=== PATIENT | male | born 1970 | race Caucasian/White ===

== ENCOUNTER 2021-04-03 20:58 | Emergency (ER) | payer MEDICARE ==
--- NOTE | 2021-04-03 21:57 | XR ---
EXAMINATION TYPE: XR chest 2V DATE OF EXAM: 04/03/2021 COMPARISON: NONE HISTORY: Cough TECHNIQUE: 2 views FINDINGS: Heart and mediastinum are normal. Lungs are clear. Diaphragm is normal. Bony thorax appears intact. IMPRESSION: Normal chest.
--- NOTE | 2021-04-03 22:08 | ED ---
SOB HPI - General Chief Complaint: Shortness of Breath Stated Complaint: SOB,cough Time Seen by Provider: 04/03/21 21:28 Source: patient, RN notes reviewed, old records reviewed Mode of arrival: ambulatory Limitations: no limitations - History of Present Illness Initial Comments: This is a 50-year-old male to the emergency room today for evaluation of s hortness of breath cough or congestion. No fevers. Patient does have history of smoking and smoking marijuana. Patient presented to the for evaluation of persistent weakness shortness of breath and cough. Patient is also having shortness of breath and chest pain with exertion MD Complaint: shortness of breath, cough -: days(s) Radiation: back, jaw Severity: moderate Quality: dull, stabbing Consistency: intermittent Improves With: nothing Worsens With: nothing Known History Of: COPD, asthma Context: recent URI, recent illness Associated Symptoms: cough - Related Data Home Medications Medication Instructions Recorded Confirmed Albuterol Sulfate [Albuterol 2 puff PO RT-Q6H PRN 04/03/21 04/03/21 Sulfate Hfa] Mometasone/Formoterol [Dulera 50 1 puff PO RT-DAILY PRN 04/03/21 04/03/21 Mcg-5 Mcg Inhaler] Terazosin [Hytrin] 1 mg PO DAILY 04/03/21 04/03/21 buPROPion [Wellbutrin] 75 mg PO DAILY 04/03/21 04/03/21 Previous Rx's Medication Instructions Recorded Albuterol Nebulized [Ventolin 2.5 mg INHALATION Q4H PRN #25 nebu 04/04/21 Nebulized] Albuterol Sulfate [Proair Hfa] 1 - 2 puff INHALATION Q4H PRN #1 04/04/21 inhaler predniSONE 50 mg PO DAILY #5 tab 04/04/21 Allergies Allergy/AdvReac Type Severity Reaction Status Date / Time No Known Allergies Allergy Verified 04/03/21 23:25 Review of Systems ROS Statement: Those systems with pertinent positive or pertinent negative responses have been documented in the HPI. ROS Other: All systems not noted in ROS Statement are negative. Past Medical History Past Medical History: No Reported History History of Any Multi-Drug Resistant Organisms: None Reported Past Surgical History: Orthopedic Surgery, Tonsillectomy Past Psychological History: No Psychological Hx Reported Smoking Status: Current every day smoker Past Alcohol Use History: None Reported Past Drug Use History: Marijuana General Exam Limitations: no limitations General appearance: alert, in no apparent distress, anxious Head exam: Present: atraumatic, normocephalic, normal inspection Eye exam: Present: normal appearance, PERRL, EOMI. Absent: scleral icterus, conjunctival injection, periorbital swelling ENT exam: Present: normal exam, mucous membranes moist Neck exam: Present: normal inspection. Absent: tenderness, meningismus, lymphadenopathy Respiratory exam: Present: respiratory distress, wheezes, rhonchi. Absent: normal lung sounds bilaterally, rales, stridor Cardiovascular Exam: Present: regular rate, normal rhythm, normal heart sounds. Absent: systolic murmur, diastolic murmur, rubs, gallop, clicks GI/Abdominal exam: Present: soft, normal bowel sounds. Absent: distended, tenderness, guarding, rebound, rigid Extremities exam: Present: normal inspection, full ROM, normal capillary refill. Absent: tenderness, pedal edema, joint swelling, calf tenderness Back exam: Present: normal inspection Neurological exam: Present: alert, oriented X3, CN II-XII intact Psychiatric exam: Present: normal affect, normal mood Skin exam: Present: warm, dry, intact, normal color. Absent: rash Course Vital Signs 04/03/21 04/03/21 04/04/21 21:23 23:58 00:03 Temperature 98.6 F 98.4 F Pulse Rate 90 86 72 Respiratory 18 20 Rate Blood Pressure 128/77 112/67 O2 Sat by Pulse 99 Oximetry 04/04/21 04/04/21 00:13 00:53 Temperature 98.4 F Pulse Rate 88 83 Respiratory 18 Rate Blood Pressure 116/60 O2 Sat by Pulse 93 L Oximetry - Reevaluation(s) Reevaluation #1: 04/04/21 Record is reviewed Patient symptoms are improved here in the emergency department Patient informed of results and questions answered Patient is in no acute distress Medical Decision Making - Medical Decision Making 50 male DF for evaluation of breath persistent some time now with exertional shortness of breath for the last 3 days. Does have a CTA which is negative here in the ER states he feels resolved with breathing treatments and can be discharged home - Lab Data Result diagrams: 04/03/21 22:13 04/03/21 22:13 Lab Results 04/03/21 04/03/21 04/03/21 Range/Units 22:13 22:13 22:13 WBC 9.3 (3.8-10.6) k/uL RBC 4.85 (4.30-5.90) m/uL Hgb 15.4 (13.0-17.5) gm/dL Hct 46.4 (39.0-53.0) % MCV 95.7 (80.0-100.0) fL MCH 31.8 (25.0-35.0) pg MCHC 33.3 (31.0-37.0) g/dL RDW 13.0 (11.5-15.5) % Plt Count 214 (150-450) k/uL MPV 8.3 Neutrophils % 49 % Lymphocytes % 36 % Monocytes % 5 % Eosinophils % 7 % Basophils % 1 % Neutrophils # 4.6 (1.3-7.7) k/uL Lymphocytes # 3.3 (1.0-4.8) k/uL Monocytes # 0.5 (0-1.0) k/uL Eosinophils # 0.6 (0-0.7) k/uL Basophils # 0.1 (0-0.2) k/uL PT 9.5 (9.0-12.0) sec INR 0.9 (<1.2) APTT 22.4 (22.0-30.0) sec D-Dimer 0.40 (<0.60) mg/L FEU Sodium 137 (137-145) mmol/L Potassium 4.2 (3.5-5.1) mmol/L Chloride 105 (98-107) mmol/L Carbon Dioxide 25 (22-30) mmol/L Anion Gap 7 mmol/L BUN 21 H (9-20) mg/dL Creatinine 0.77 (0.66-1.25) mg/dL Est GFR (CKD-EPI)AfAm >90 (>60 ml/min/1.73 sqM) Est GFR (CKD-EPI)NonAf >90 (>60 ml/min/1.73 sqM) Glucose 103 H (74-99) mg/dL Plasma Lactic Acid Carlos (0.7-2.0) mmol/L Calcium 9.0 (8.4-10.2) mg/dL Total Bilirubin 0.3 (0.2-1.3) mg/dL AST 34 (17-59) U/L ALT 50 H (4-49) U/L Alkaline Phosphatase 87 (38-126) U/L Creatine Kinase 125 (55-170) U/L Troponin I (0.000-0.034) ng/mL NT-Pro-B Natriuret Pep pg/mL Total Protein 6.9 (6.3-8.2) g/dL Albumin 4.4 (3.5-5.0) g/dL 04/03/21 04/03/21 04/03/21 Range/Units 22:13 22:13 22:13 WBC (3.8-10.6) k/uL RBC (4.30-5.90) m/uL Hgb (13.0-17.5) gm/dL Hct (39.0-53.0) % MCV (80.0-100.0) fL MCH (25.0-35.0) pg MCHC (31.0-37.0) g/dL RDW (11.5-15.5) % Plt Count (150-450) k/uL MPV Neutrophils % % Lymphocytes % % Monocytes % % Eosinophils % % Basophils % % Neutrophils # (1.3-7.7) k/uL Lymphocytes # (1.0-4.8) k/uL Monocytes # (0-1.0) k/uL Eosinophils # (0-0.7) k/uL Basophils # (0-0.2) k/uL PT (9.0-12.0) sec INR (<1.2) APTT (22.0-30.0) sec D-Dimer (<0.60) mg/L FEU Sodium (137-145) mmol/L Potassium (3.5-5.1) mmol/L Chloride (98-107) mmol/L Carbon Dioxide (22-30) mmol/L Anion Gap mmol/L BUN (9-20) mg/dL Creatinine (0.66-1.25) mg/dL Est GFR (CKD-EPI)AfAm (>60 ml/min/1.73 sqM) Est GFR (CKD-EPI)NonAf (>60 ml/min/1.73 sqM) Glucose (74-99) mg/dL Plasma Lactic Acid Carlos 0.8 (0.7-2.0) mmol/L Calcium (8.4-10.2) mg/dL Total Bilirubin (0.2-1.3) mg/dL AST (17-59) U/L ALT (4-49) U/L Alkaline Phosphatase (38-126) U/L Creatine Kinase (55-170) U/L Troponin I <0.012 (0.000-0.034) ng/mL NT-Pro-B Natriuret Pep 83 pg/mL Total Protein (6.3-8.2) g/dL Albumin (3.5-5.0) g/dL - EKG Data -: EKG Interpreted by Me (EKG shows sinus rhythm 79 MT 136 QRS 88 QTc 426) - Radiology Data Radiology results: report reviewed (CT angios of chest is negative for acute disease), image reviewed Disposition Clinical Impression: Acute exacerbation of COPD with asthma Disposition: HOME SELF-CARE Condition: Good Instructions (If sedation given, give patient instructions): Acute Bronchitis (ED), Chronic Bronchitis (ED) Prescriptions: predniSONE 50 mg PO DAILY #5 tab Albuterol Sulfate [Proair Hfa] 1 - 2 puff INHALATION Q4H PRN #1 inhaler PRN Reason: Shortness Of Breath Albuterol Nebulized [Ventolin Nebulized] 2.5 mg INHALATION Q4H PRN #25 nebu PRN Reason: Shortness Of Breath Is patient prescribed a controlled substance at d/c from ED?: No Referrals: Nonstaff,Physician [REFERRING] - 1-2 days
[2021-04-03 22:25] LABS: Basophils # (A) 0.1 k/uL (0-0.2); Basophils % (A) 1 %; Eosinophils # (A) 0.6 k/uL (0-0.7); Eosinophils % (A) 7 %; HCT 46.4 % (39.0-53.0); HGB 15.4 gm/dL (13.0-17.5); Lymphocytes # (A) 3.3 k/uL (1.0-4.8); Lymphocytes % (A) 36 %; MCH 31.8 pg (25.0-35.0); MCHC 33.3 g/dL (31.0-37.0); MCV 95.7 fL (80.0-100.0); Mean Platelet Volume 8.3; Monocytes # (A) 0.5 k/uL (0-1.0); Monocytes % (A) 5 %; Neutrophils # (A) 4.6 k/uL (1.3-7.7); Neutrophils % (A) 49 %; Platelet Count 214 k/uL (150-450); RBC 4.85 m/uL (4.30-5.90); WBC 9.3 k/uL (3.8-10.6)
[2021-04-03 22:34] LABS: ALT 50 U/L (4-49); AST 34 U/L (17-59); African American GFR (CKD) >90 (>60 ml/min/1.73 sqM); Albumin 4.4 g/dL (3.5-5.0); Alkaline Phosphatase 87 U/L (38-126); Anion Gap 7 mmol/L; Blood Urea Nitrogen 21 mg/dL (9-20); Carbon Dioxide 25 mmol/L (22-30); Chloride 105 mmol/L (98-107); Creatine Kinase 125 U/L (55-170); Glucose 103 mg/dL (74-99); Non-African American GFR(CKD) >90 (>60 ml/min/1.73 sqM); Potassium 4.2 mmol/L (3.5-5.1); Sodium 137 mmol/L (137-145); Total Bilirubin 0.3 mg/dL (0.2-1.3); Total Protein 6.9 g/dL (6.3-8.2)
[2021-04-03 22:37] LABS: INR 0.9 (<1.2); Partial Thromboplastin Time 22.4 sec (22.0-30.0); Prothrombin Time 9.5 sec (9.0-12.0)
--- NOTE | 2021-04-03 23:03 | CT ---
EXAMINATION TYPE: CT angio chest DATE OF EXAM: 04/03/2021 COMPARISON: None HISTORY: Chest pain CT DLP: 744.10 mGycm Automated exposure control for dose reduction was used. CONTRAST: Performed with IV Contrast, patient injected with 80 mL of Isovue 370. There are 3-D post processed images. The lungs are clear of infiltrate. There is no pleural effusion. Heart size is normal. There is no pe ricardial effusion. There is no mediastinal adenopathy. There are no hilar masses. Thoracic aorta is intact. There is nor mal contrast opacification of the pulmonary arteries. There are no filling defects. Thoracic spine is intact. There is no compression fracture. The ribs appear intact. Upper abdominal s oft tissues are intact. IMPRESSION: Negative exam. No evidence of pulmonary embolism. No suspicious pulmonary mass.
[2021-04-03] MEDS ORDERED: methylPREDNISolone SOD SUCCI 125 MG/2 ML VIAL IV STA (23:08)
[2021-04-03] MEDS ORDERED: IPRATROPIUM-ALBUTEROL 3 ML NEB INHALATION STA (23:08)
[2021-04-04 00:05] VITALS: TEMP 98.4
[2021-04-04 01:00] VITALS: BP 116/60; PULSE 83; RESP 18
== END 2021-04-04 01:00 | disposition home or self-care (01) ==
LOC: EC 20:58
DX: J44.1 Chronic obstructive pulmonary disease with (acute) exacerbation (principal); J45.901 Unspecified asthma with (acute) exacerbation; F17.200 Nicotine dependence, unspecified, uncomplicated; F12.90 Cannabis use, unspecified, uncomplicated; Z90.89 Acquired absence of other organs
CPT/HCPCS: 99285; 96374; 36415; 94640; 93005; 85379; 83880; 80053; 82550; 83605; 84484; 85025; 85610; 85730; 71046; 71275; J2930; Q9967